=== PATIENT | male | born 1955 | race Caucasian/White ===

== ENCOUNTER 2017-10-05 07:11 | Emergency (ER) | payer OTHER ==
[2017-10-05 07:19] VITALS: BMI 30.2
--- NOTE | 2017-10-05 07:43 | DR.GENAD ---
HPI - PCP Primary Care Physician: AURELIA - Complaint/Symptoms Chief Complaint Doctors Comments: Patient present for complaint of low back pain for one year. Patient states that he has 24/7 low back pain. He has been evaluated by Dr Rodriguez who had ordered a MRI but it was declined by the insurance company. Patient also states that he has been sick two weeks with a cough and congestion with chest pain with cough. He denies a history of cardiopulmonary disease. He denies being a smoker. PMH of HTN Chief Complaint:: BEEN SICK FOR ONE WEEK, HURTING IN CHEST WITH SHARP PAIN WHEN I TAKE DEEP BREATH. - Source History Provided: Patient - Mode of Arrival Mode of Arrival: Ambulatory - Timing Onset of Chief Complaint: 09/28/17 <JOSE REAVES - Last Filed: 10/05/17 08:07> PMH - PMH Past Medical History: Yes Past Medical History: Anxiety, Hypertension Past Surgical History: Yes Past Surgical History Comment: HERNIA - Family History History of Family Medical Conditions: Yes Family Medical History: [place], Sudden Cardiac , Hypertension - Social History Does any household member use tobacco: Yes Alcohol Use: Occasionally Do you use any recreational Drugs:: No Lives With: Spouse Lives Where: Home - infectious screening In the last 2 months have you had wt loss of >10#?: NO Have you had fever, night sweats or hemotysis?: No Have you traveled outside the country in the last 6 months?: No Isolation: Standard <JOSE REAVES - Last Filed: 10/05/17 08:07> ROS - Review of Systems Eyes: No Symptoms Reported ENTM: No Symptoms Reported Respiratoy: No Symptoms Reported Cardiovascular: No Symptoms Reported Gastrointestinal/Abdominal: No Symptoms Reported Genitourinary: No Symptoms Reported Neurological: No Symptoms Reported Musculoskeletal: No Symptoms Reported, Back Pain (tenderness to palpation of low lumbar mid linline) Integumentary: No Symptoms Reported Hematologic/Lymphatic: No Symptoms Reported Endocrine: No Symptoms Reported Psychiatric: No Symptoms Reported All Other Systems: Reviewed and Negative <JOSE REAVES - Last Filed: 10/05/17 08:07> PE - General Limitations: No Limitations General Appearance: Alert, In No Apparent Distress - Head Head Exam: Normal Inspection, Atraumatic - Eyes Eye exam: Normal Appearance, PERRL, EOMI - ENT ENT Exam: Normal Exam External Ear Exam: Normal External Inspection TM/Canal Exam: Bilateral Normal Nose Exam: Normal Nose Exam Mouth Exam: Normal Inspection Throat Exam: Normal Inspection - Neck Neck Exam: Normal Inspection, Full ROM - Chest Chest Inspection: Normal Inspection, Symmetric Chest Wall Rise - Respiratory Respiratory Exam: Normal Lung Sounds Bilat Respiratory Exam: Bilateral Clear to Auscultation - Cardiovascular Cardiovascular Exam: Regular Rate, Normal Rhythm - Abdominal Exam Abdominal Exam: Normal Inspection, Normal Bowel Sounds Abdominal Tenderness: negative: RUQ, RLQ, LUQ, LLQ, Epigastrium, Suprapubic, Diffuse, Mild, Moderate, Severe, Other - Extremities Extremities Exam: Normal Inspection, Full ROM - Back Back Exam: Normal Inspection, Tenderness (mid low back to palpation) - Neurologic Neurological Exam: Alert, Oriented X3, CN II-XII Intact - Psychiatric Psychiatric Exam: Normal Affect, Normal Mood - Skin Skin Exam: Warm, Dry, Intact <JOSE REAVES - Last Filed: 10/05/17 08:07> - Vital Signs Vitals: Temperature 97.7 F Pulse Rate [Left Brachial] 66 Pulse Rate 85 Respiratory Rate 22 Blood Pressure [Left Arm] 142/85 Blood Pressure 160/95 O2 Sat by Pulse Oximetry 96 MDM - Differential Diagnosis Differential Diagnosis: LOW BACK PAIN, DJD, BRONCHITIT, PNEUMONIA, UTI <ZINA ROBERSON - Last Filed: 10/06/17 08:10> Course - Treatment Treatment: SEE ORDERS - Education/Counseling Education/Counseling: Patient, Education Educated On: Diagnosis <ZINA ROBERSON - Last Filed: 10/06/17 08:10> ROR - Labs Reviewed Result Diagrams: 10/05/17 08:00 10/05/17 08:00 <JOSE REAVES - Last Filed: 10/05/17 08:07> - Labs Reviewed Laboratory Results Reviewed?: Yes Result Diagrams: 10/05/17 08:00 10/05/17 08:00 - XRAY XRAY Findings: report discuss with patient <ZINA ROBERSON - Last Filed: 10/06/17 08:10> - Labs Reviewed Laboratory: WBC 4.4 X10^3/uL (3.6-10.0) 10/05/17 08:00 RBC 4.77 X10^6/uL (4.7-6.0) 10/05/17 08:00 Hgb 15.4 g/dL (13.5-18.0) 10/05/17 08:00 Hct 43.6 % (42.0-54.0) 10/05/17 08:00 MCV 91.4 fL (80.0-100.0) 10/05/17 08:00 MCH 32.3 pg (27.0-34.0) 10/05/17 08:00 MCHC 35.3 g/dL (33.0-35.0) H 10/05/17 08:00 RDW 13.0 % (11.6-16.5) 10/05/17 08:00 Plt Count 244 X10^3/uL (150.0-450.0) 10/05/17 08:00 MPV 8.4 fL (7.4-11.0) 10/05/17 08:00 Neut % 55.4 % (42.0-75.0) 10/05/17 08:00 Lymph % 30.4 % (21.0-51.0) 10/05/17 08:00 [place] % 10.1 % (0.0-13.0) 10/05/17 08:00 Eos % 3.2 % (0.9-2.9) H 10/05/17 08:00 Baso % 0.9 % (0.2-1.0) 10/05/17 08:00 Neut # 2.4 x10^3/uL (2.2-4.8) 10/05/17 08:00 Lymph # 1.3 X10^3/uL (1.3-2.9) 10/05/17 08:00 [place] # 0.4 x10^3/uL (0.3-0.8) 10/05/17 08:00 Eos # 0.1 x10^3/uL (0.0-0.2) 10/05/17 08:00 Baso # 0.0 X10^3/uL (0.0-0.1) 10/05/17 08:00 Absolute Nucleated RBC 0.0 /100WBC 10/05/17 08:00 Sodium 142 mmol/L (136-145) 10/05/17 08:00 Corrected Sodium 143 mmol/L (136-145) 10/05/17 08:00 Potassium 3.8 mmol/L (3.5-5.1) 10/05/17 08:00 Chloride 103 mmol/L (98-107) 10/05/17 08:00 Carbon Dioxide 29.9 mmol/L (21-32) 10/05/17 08:00 BUN 15 mg/dL (7-18) 10/05/17 08:00 Creatinine 0.91 mg/dL (0.70-1.30) 10/05/17 08:00 Est GFR (MDRD) Af Amer > 60 (>60) 10/05/17 08:00 Est GFR (MDRD) Non-Af > 60 (>60) 10/05/17 08:00 Glucose 161 mg/dL (65-99) H 10/05/17 08:00 Hemoglobin A1c 5.7 % (4.5-6.2) 10/05/17 08:00 Calcium 9.0 mg/dL (8.5-10.1) 10/05/17 08:00 Corrected Calcium TNP 10/05/17 08:00 Total Bilirubin 0.30 mg/dL (0.2-1.0) 10/05/17 08:00 AST 39 Units/L (15-37) H 10/05/17 08:00 ALT 92 Units/L (12-78) H 10/05/17 08:00 Alkaline Phosphatase 70 Units/L (46-116) 10/05/17 08:00 C-Reactive Protein 1.60 mg/L (0-3.0) 10/05/17 08:00 Total Protein 7.5 g/dL (6.4-8.2) 10/05/17 08:00 Albumin 3.8 g/dL (3.4-5.0) 10/05/17 08:00 Globulin 3.7 g/dL (2.5-4.5) 10/05/17 08:00 Albumin/Globulin Ratio 1.0 Ratio (1.1-2.1) L 10/05/17 08:00 Specimen Type Clean catch urine 10/05/17 09:30 Urine Color Yellow (YELLOW) 10/05/17 09:30 Urine Appearance Clear (CLEAR) 10/05/17 09:30 Urine pH 6.5 (5.0 - 8.0) 10/05/17 09:30 Ur Specific [place] 1.010 (1.000-1.030) 10/05/17 09:30 Urine Protein Negative (NEGATIVE) 10/05/17 09:30 Urine Glucose (UA) Negative (NEGATIVE) 10/05/17 09:30 Urine Ketones Negative (NEGATIVE) 10/05/17 09:30 Urine Occult Blood Negative (NEGATIVE) 10/05/17 09:30 Urine Nitrite Negative (NEGATIVE) 10/05/17 09:30 Urine Bilirubin Negative (NEGATIVE) 10/05/17 09:30 Urine Urobilinogen Normal (NORMAL) 10/05/17 09:30 Ur Leukocyte Esterase Negative (NEGATIVE) 10/05/17 09:30 Urine RBC None seen /HPF (NEGATIVE) 10/05/17 09:30 Urine WBC None seen /HPF (NEGATIVE) 10/05/17 09:30 Ur Squamous Epith Cells Rare /HPF (NEGATIVE) 10/05/17 09:30 Urine Bacteria Negative /HPF (NEGATIVE) 10/05/17 09:30 Ur Culture Indicated? No/not indicated 10/05/17 09:30 Acetone, Semi-Quant Negative (NEGATIVE) 10/05/17 08:00 <JOSE REAVES - Last Filed: 10/05/17 08:07> <ZINA ROBERSON - Last Filed: 10/06/17 08:10> - Diagnosis Discharge Problem: Low back pain Qualifiers: Chronicity: acute Back pain laterality: bilateral Acute bronchitis Qualifiers: Bronchitis organism: unspecified organism Qualified Code(s): J20.9 - Acute bronchitis, unspecified DJD (degenerative joint disease) Qualifiers: Osteoarthritis location: spine Spinal region: lumbosacral Spinal osteoarthritis complication: unspecified spinal osteoarthritis Qualified Code(s) : M47.817 - Spondylosis without myelopathy or radiculopathy, lumbosacral region - Discharge Plan Disposition: 01 HOME, SELF-CARE Condition: Stable Prescriptions: Amoxicillin [Amoxil 875 mg] 875 mg PO Q12H #20 tab Benzonatate [TESSALON PERLES *] 200 mg PO TID PRN #30 cap PRN Reason: Cough Cyclobenzaprine HCl [FLEXERIL 10 MG *] 10 mg PO TID #20 tab Ibuprofen [MOTRIN TAB 800 MG *] 800 mg PO Q8H PRN #30 tab PRN Reason: Pain/Inflammation - Follow ups/Referrals Follow ups/Referrals: SHAHIDA ROME [Primary Care Provider] - 3 days - Instructions Instructions: Acute Bronchitis, [id number], Back Pain, Adult, [id number] Additional Instructions: RETURN TO ED IF WORSE.
[2017-10-05 08:14] LABS: BASOPHILS % (AUTO) 0.9 % (0.2-1.0); EOSINOPHILS # (AUTO) 0.1 x10^3/uL (0.0-0.2); EOSINOPHILS % (AUTO) 3.2 % (0.9-2.9); HEMATOCRIT 43.6 % (42.0-54.0); HEMOGLOBIN 15.4 g/dL (13.5-18.0); LYMPHOCYTES # (AUTO) 1.3 X10^3/uL (1.3-2.9); LYMPHOCYTES % (AUTO) 30.4 % (21.0-51.0); MEAN CORPUSCULAR HEMOGLOBIN 32.3 pg (27.0-34.0); MEAN CORPUSCULAR HGB CONC 35.3 g/dL (33.0-35.0); MEAN CORPUSCULAR VOLUME 91.4 fL (80.0-100.0); MEAN PLATELET VOLUME 8.4 fL (7.4-11.0); MONOCYTES # (AUTO) 0.4 x10^3/uL (0.3-0.8); MONOCYTES % (AUTO) 10.1 % (0.0-13.0); NEUTROPHILS # (AUTO) 2.4 x10^3/uL (2.2-4.8); NEUTROPHILS % (AUTO) 55.4 % (42.0-75.0); PLATELET COUNT 244 X10^3/uL (150.0-450.0); RED BLOOD COUNT 4.77 X10^6/uL (4.7-6.0); WHITE BLOOD COUNT 4.4 X10^3/uL (3.6-10.0)
[2017-10-05 08:28] VITALS: BP 142/85
[2017-10-05 08:36] LABS: CHLORIDE 103 mmol/L (98-107)
--- NOTE | 2017-10-05 08:41 | RAD ---
Examination: Chest, PA and lateral views History: Cough and congestion Findings: Normal heart size with essentially clear lungs and pleural spaces. Prominent linear marking s in the lower lobes compatible with normal vascularity. No consolidation, adenopathy or pleural flui d. Impression: No active chest disease demonstrated. Reported By:
--- NOTE | 2017-10-05 08:47 | CT ---
HISTORY: Low back pain Study: CT lumbar spine without contrast Comparison: None Technique: Axial noncontrast images with coronal and sagittal reformats. Dose reduction procedures we re used with mA/kv adjusted for body size. Findings: The bones are mildly osteopenic. The alignment is normal. The vertebral bodies are of average height. No compression fractures are identified. The pedicles, spinous processes, and posterior elements are intact. The visualized portions of the sacrum and SI joints are intact. The disc levels are evaluate d as follows: L1-2 level: No evidence for compressive disc disease. The neural foramina are patent. The joints are normal. L2-3 level: No evidence for compressive disc disease. The neural foramina are patent. The joints are normal. L3-4 level: Minimal broad-based disc bulging causes minimal thecal sac effacement. The neural foramin a are patent. Mild facet arthropathy is present bilaterally. L4-5 level: Broad-based disc protrusion effaces the thecal sac and contributes along with pedicular s hortening and facet arthropathy to lateral recess narrowing bilaterally. L5-S1 level: Broad-based disc bulging effaces the thecal sac and contributes along with bilateral fac et arthropathy and spondylitic change to mild lateral recess narrowing bilaterally. IMPRESSION: As above Reported By:
[2017-10-05 08:58] LABS: ALANINE AMINOTRANSFERASE 92 Units/L (12-78); ALBUMIN 3.8 g/dL (3.4-5.0); ALKALINE PHOSPHATASE 70 Units/L (46-116); ASPARTATE AMINO TRANSFERASE 39 Units/L (15-37); BLOOD UREA NITROGEN 15 mg/dL (7-18); CARBON DIOXIDE 29.9 mmol/L (21-32); COR NA(FOR HYPERGLY) 143 mmol/L (136-145); CREATININE 0.91 mg/dL (0.70-1.30); SODIUM 142 mmol/L (136-145); TOTAL PROTEIN 7.5 g/dL (6.4-8.2); eGFR BLACK RACES > 60 (>60); eGFR NON BLACK RACES > 60 (>60)
[2017-10-05 09:46] LABS: SERUM ACETONE NEGATIVE (NEGATIVE)
[2017-10-05 09:51] LABS: HEMOGLOBIN A1C 5.7 % (4.5-6.2)
[2017-10-05 09:52] LABS: BILIRUBIN,URINE NEGATIVE (NEGATIVE); BLOOD/HEMOGLOBIN,URINE NEGATIVE (NEGATIVE); GLUCOSE, URINE NEGATIVE (NEGATIVE); KETONES,URINE NEGATIVE (NEGATIVE); LEUKOCYTE ESTERASE ,URINE NEGATIVE (NEGATIVE); NITRITES,URINE NEGATIVE (NEGATIVE); PH,URINE 6.5 (5.0 - 8.0); PROTEIN,URINE NEGATIVE (NEGATIVE); UROBILINOGEN,URINE NORMAL (NORMAL)
[2017-10-05 10:05] LABS: APPEARANCE,URINE CLEAR (CLEAR); BACTERIA,URINE NEGATIVE /HPF (NEGATIVE); COLOR,URINE YELLOW (YELLOW); RBC,URINE NONE SEEN /HPF (NEGATIVE); SQUAMOUS EPITHELIAL CELL,UR RARE /HPF (NEGATIVE)
== END 2017-10-05 10:17 | disposition home or self-care (01) ==
LOC: ER 07:27
DX: J20.9 Acute bronchitis, unspecified (principal); M47.817 Spondylosis without myelopathy or radiculopathy, lumbosacral region; M54.5 Low back pain
CPT/HCPCS: 36415; 71020; 72131; 80053; 81001; 82009; 83036; 85025; 86140; 99282; 99283